=== PATIENT | female | born 1975 | race Caucasian/White ===

== ENCOUNTER → 2019-10-28 09:55 | Outpatient (BNVA) | payer OTHER, SELFPAY | PROVIDERS: Family Provider Family Medicine; PCP Family Medicine; Referring Provider Family Medicine; Visit Provider Family Medicine | DX: E03.9 Hypothyroidism, unspecified (principal); M25.50 Pain in unspecified joint; I49.8 Other specified cardiac arrhythmias; I10 Essential (primary) hypertension; F41.9 Anxiety disorder, unspecified; I87.2 Venous insufficiency (chronic) (peripheral) | CPT/HCPCS: 80053; 84443; 85007; 85027; 85651 ==

== ENCOUNTER → 2019-12-06 16:16 | Outpatient (BNVA) | payer OTHER, SELFPAY | PROVIDERS: Family Provider Family Medicine; PCP Family Medicine; Visit Provider Family Medicine | DX: G62.9 Polyneuropathy, unspecified (principal); E03.9 Hypothyroidism, unspecified; G60.3 Idiopathic progressive neuropathy; I10 Essential (primary) hypertension; I87.2 Venous insufficiency (chronic) (peripheral) | CPT/HCPCS: 82607; 84439; 84443 ==

== ENCOUNTER → 2020-01-08 14:42 | Outpatient (BNVA) | payer OTHER, SELFPAY | PROVIDERS: Family Provider Family Medicine; PCP Family Medicine; Visit Provider Nurse Practitioner Family | DX: N39.0 Urinary tract infection, site not specified (principal) | CPT/HCPCS: 81000 ==

== ENCOUNTER → 2020-03-23 08:40 | Outpatient (BNVA) | payer OTHER, SELFPAY | PROVIDERS: Family Provider Family Medicine; PCP Family Medicine; Visit Provider Family Medicine | DX: E03.9 Hypothyroidism, unspecified (principal); N30.00 Acute cystitis without hematuria; I10 Essential (primary) hypertension; I87.2 Venous insufficiency (chronic) (peripheral); M25.50 Pain in unspecified joint; E66.9 Obesity, unspecified; R35.0 Frequency of micturition; Z68.29 Body mass index [BMI] 29.0-29.9, adult | CPT/HCPCS: 81000; 84439; 84443 ==

== ENCOUNTER 2020-07-14 08:07 | Outpatient (CLI) | payer OTHER, SELFPAY ==
--- NOTE | 2020-07-14 08:13 | MM_ITS ---
WS: [id number] Bilateral screening digital mammogram, 07/14/2020 Clinical Data: SCREENING Comparison: 11/17/2018, 08/06/2017, 07/29/2016. Findings: The breast parenchymal pattern shows fibroglandular tissue No spiculated masses or clustered calcific ations are seen. There are no secondary signs of carcinoma. The augmentation mammoplasty implants are intact. On the medial aspect of the left breast there is a bulge, which has been present before. MM/[id number] Impression: 1. Negative bilateral mammogram unchanged. 2. Intact bilateral augmentation mammoplasty implants. 3. Prominent bulge at the medial aspect of the left breast implant seen on cc view. 4. Recommend annual screening mammograms. BIRADS: 2-Benign FOLLOW UP: 1 Year Follow-up The CAD hat checker was used.
== END 2020-07-14 08:08 | disposition home or self-care (01) ==
LOC: RADSHAW 08:09
PROVIDERS: PCP Family Medicine; Visit Provider Family Medicine
DX: Z12.31 Encounter for screening mammogram for malignant neoplasm of breast (principal)
CPT/HCPCS: 77067

== ENCOUNTER 2022-04-19 16:53 | Emergency (ER) | payer OTHER, SELFPAY ==
--- NOTE | 2022-04-19 16:57 | XRR_ITS ---
PROCEDURE INFORMATION: Exam: XR Chest Exam date and time: 04/19/2022 5:22 PM Age: 46 years old Clinical indication: Angina; Additional info: Cp TECHNIQUE: Imaging protocol: Radiologic exam of the chest. Views: 1 view. COMPARISON: CR Chest 1 [place] [id number] 07/13/2015 2:10 PM FINDINGS: Lungs: Unremarkable. No consolidation. Pleural spaces: Unremarkable. No pleural effusion. No pneumothorax. Heart/Mediastinum: Unremarkable. No cardiomegaly. Bones/joints: Unremarkable. XR/XR chest 1V portable [id number] IMPRESSION: No acute findings.
--- NOTE | 2022-04-19 16:57 | ECG_ITS ---
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 Measurements Intervals [place] Rate: 101 P: 20 AR: 141 QRS: 6 QRSD: 86 T: 92 QT: 325 QTc: 422 Interpretive Statements SINUS TACHYCARDIA NONSPECIFIC ST & T-WAVE ABNORMALITY No previous ECG available for comparison Electronically Signed On 04-19-2022 18:30:14 CDT by Aquilino Rainey M.D. [email or web address].[email or web address]/store/NU/[id number] f
[2022-04-19 17:02] VITALS: BP 147/89; PULSE 100; RESP 18; TEMP 36.8; O2SAT 97; BMI 31.1
[2022-04-19 17:37] LABS: Basophils # 0.1 10^3/uL (0.0-0.1); Eosinophils # 0.2 10^3/uL (0.0-0.8); Eosinophils % 2.2 %; Hematocrit 43.5 % (37.0-47.0); Hemoglobin 14.1 g/dL (11.5-15.3); Lymphocytes # 2.8 10^3/uL (0.8-4.8); Lymphocytes % 33.3 %; Mean Corpuscular HGB Conc 32.4 g/dL (30.0-36.0); Mean Corpuscular Hemoglobin 28.9 pg (28.0-34.0); Mean Corpuscular Volume 89.1 fl (81-99); Mean Platelet Volume 10.1 fL (7.4-10.4); Monocytes # 0.9 10^3/uL (0.2-0.9); Monocytes % 10.4 %; Neutrophils # 4.34 10^3/uL (1.8-7.7); Neutrophils % 52.6 %; Nucleated Red Blood Cells % 0 %; Platelet Count 309 10^3/cmm (130-400); Red Blood Count 4.88 10^6/uL (4.1-5.3); Red Cell Distribution Width 12.8 % (12.1-15.1); White Blood Count 8.3 10^3/uL (4.0-10.0)
--- NOTE | 2022-04-19 17:43 | CTR_ITS ---
PROCEDURE INFORMATION: Exam: CTA Chest With Contrast Exam date and time: 04/19/2022 6:09 PM Age: 46 years old Clinical indication: Chest wall pain; Prior surgery; Surgery date: 6+ months; Surgery type: Breast implants; Patient HX: Radiating pain off/on x2-3 days wo trauma; Additional info: Concern for pe TECHNIQUE: Imaging protocol: Computed tomographic angiography of the chest with contrast. 3D rendering (Not supervised by radiologist): MIP and/or 3D reconstructed images were created by the technologist. Radiation optimization: All CT scans at this facility use at least one of these dose optimization techniques: automated exposure control; mA and/or kV adjustment per patient size (includes targeted exams where dose is matched to clinical indication); or iterative reconstruction. Contrast material: OMNIPAQUE 350; Contrast volume: 95 ml; Contrast route: INTRAVENOUS (IV); COMPARISON: CR (CHEST, ) 04/19/2022 5:22 PM RADIATION DOSE METRICS: Total DLP (mGy-cm): 392.7 FINDINGS: Pulmonary arteries: Normal. No pulmonary emboli. Aorta: Unremarkable. No aortic aneurysm. No aortic dissection. Lungs: Bibasilar atelectasis. Pleural spaces: Unremarkable. No pneumothorax. No pleural effusion. Heart: Unremarkable. No cardiomegaly. No pericardial effusion. Lymph nodes: Unremarkable. No enlarged lymph nodes. Bones/joints: Unremarkable. No acute fracture. Soft tissues: Unremarkable. CT/CT angio chest PE protcl [id number] IMPRESSION: 1. Negative for pulmonary embolus. 2. Bibasilar atelectasis.
--- NOTE | 2022-04-19 17:44 | W.ED.CHESTPA ---
HPI - Chest Pain General: Chief Complaint: Chest Pain Stated Complaint: chest pain Time Seen by Provider: 04/19/22 17:37 History of Present Illness: Patient comes in with left-sided chest pain. She describes it as left-sided, intermittent, pressure started yesterday, became constant today around 1:00 in the afternoon. Becomes sharp and is worse with deep inspiration. Patient was diagnosed with COVID 2 weeks ago. Associated symptoms: Deny abdominal pain, dyspnea, fever(s), nausea, palpitations or vomiting Review of Systems Const: Denies: fever(s) or body aches Eyes: Denies: change in vision or blurry vision ENMT: Denies: throat pain or odynophagia Card: Reports: chest pain; Denies: palpitations Resp: Denies: dyspnea or productive cough GI: Denies: abdominal pain, nausea or vomiting : Denies: flank pain or dysuria Musc: Denies: neck pain or back pain Skin/Breast: Denies: rash or pruritus Neuro: Denies: headache(s) or numbness in extremities Psych: Denies: anxiety or change in appetite Endo: Denies: polyuria or excessive sweating PFSH ED PFSH: Medical History (Updated 04/19/22 @ 19:42 by Michael Mcneil MD) Essential hypertension Obesity (BMI 30.0-34.9) Peripheral neuropathy Social History Smoking and tobacco status: never smoked Alcohol intake: current Alcohol intake frequency: holidays/special occasions only Alcohol type: wine Female Reproductive History: Date of last menstrual period: 03/22/22 Physical Exam Const: COMMON NORMALS: no acute distress, patient oriented x3, healthy appearing and alert HENMT: COMMON NORMALS: normocephalic and atraumatic HEAD & SCALP: normocephalic and atraumatic Eye: COMMON NORMALS: Equal, round and reactive pupils present and EOMs intact bilaterally PUPIL: Yes Equal, round and reactive pupils present Neck/C-Spine: COMMON NORMALS: full ROM and supple Resp: COMMON NORMALS: normal respiratory effort, No retractions and No use of accessory muscles Cardio: COMMON NORMALS: regular rate and regular rhythm RATE: regular rate RHYTHM: regular rhythm GI: COMMON NORMALS: Normal to inspection, nondistended, normoactive bowel sounds present, Soft to palpation and non-tender PALPATION: Yes Soft to palpation Back/Pelvis: COMMON NORMALS: thoracic and lumbar spine normal to inspection and no thoracic nor lumbar tenderness Extremity: COMMON NORMALS: normal to inspection and full ROM Neuro: COMMON NORMALS: patient oriented x3 SENSORIUM/ORIENTATION: Yes alert Psych: COMMON NORMALS: mental status grossly normal and cooperative Skin: COMMON NORMALS: no rashes or lesions noted and no wounds GENERAL SKIN EXAM: no rashes or lesions noted Course Vital Signs: Vital signs: Vital Signs Temperature 98.2 F 04/19/22 17:02 Pulse Rate 100 04/19/22 17:02 Respiratory Rate 18 04/19/22 17:02 Blood Pressure 147/89 04/19/22 17:02 Pulse Oximetry 97 04/19/22 17:02 Oxygen Delivery Me thod 04/19/22 17:02 MDM - Chest Pain Medical Decision Making Patient comes in with left-sided chest pain. She describes it as left-sided, intermittent, pressure started yesterday, became constant today around 1:00 in the afternoon. Becomes sharp and is worse with deep inspiration. Patient was diagnosed with COVID 2 weeks ago. Physical exam is unremarkable. Will check labs, CTA chest, and reassess. On reassessment I talked to the patient about the test results. Will discharge home at this time with precautions return for worsening or changing symptoms. Lab Data : 04/19/22 17:30 04/19/22 17:30 Radiology Impressions Chest X-Ray 04/19/22 16:57 IMPRESSION: No acute findings. Chest CTA 04/19/22 17:43 IMPRESSION: 1. Negative for pulmonary embolus. 2. Bibasilar atelectasis. Laboratory Results WBC 8.3 10^3/uL (4.0-10.0) 04/19/22 17:30 RBC 4.88 10^6/uL (4.1-5.3) 04/19/22 17:30 Hgb 14.1 g/dL (11.5-15.3) 04/19/22 17:30 Hct 43.5 % (37.0-47.0) 04/19/22 17:30 MCV 89.1 fl (81-99) 04/19/22 17:30 MCH 28.9 pg (28.0-34.0) 04/19/22 17:30 MCHC 32.4 g/dL (30.0-36.0) 04/19/22 17: RDW 12.8 % (12.1-15.1) 04/19/22 17: Plt Count 309 10^3/cmm (130-400) 04/19/22 17:30 MPV 10.1 fL (7.4-10.4) 04/19/22 17: Neut % (Auto) 52.6 % 04/19/22 17: Lymph % (Auto) 33.3 % 04/19/22 17:30 [place] % (Auto) 10.4 % 04/19/22: Eos % (Auto) 2.2 % 04/19/22: Baso % (Auto) 1.0 % 04/19/22: Neut # (Auto) 4.34 10^3/uL (1.8-7.7) 04/19/22: Lymph # (Auto) 2.8 10^3/uL (0.8-4.8) 04/19/22 17: [place] # (Auto) 0.9 10^3/uL (0.2-0.9) 04/19/22 17: Eos # (Auto) 0.2 10^3/uL (0.0-0.8) 04/19/22: Baso # (Auto) 0.1 10^3/uL (0.0-0.1) 04/19/22: Nucleated RBC % (auto) 0 % 04/19/22: Nucleated RBCs # 0.0 /100WBC 04/19/22 17:30 Sodium 137 mmol/L (136-145) 04/19/22 17:30 Potassium 3.2 mmol/L (3.5-5.1) L 04/19/22:30 Chloride 98 mmol/L (98-107) 04/19/22 17: Carbon Dioxide 26 mmol/L (22-29) 04/19/22 17:30 Anion Gap 16.2 (5-19) 04/19/22 17:30 BUN 16 mg/dL (6-20) 04/19/22 17:30 Creatinine 0.8 mg/dL (0.5-0.9) 04/19/22 17:30 GFR Calculation 77.6 mL/min (90-130) L 04/19/22 17:30 Glucose 97 mg/dL (65-115) 04/19/22 17:30 Calculated Osmolality 285 mOsm/kg (285-295) 04/19/22 17:30 Calcium 9.2 mg/dL (8.5-10.5) 04/19/22 17:30 Total Bilirubin 0.2 mg/dL (0.15-1.2) 04/19/22 17:30 AST 24 U/L (0-32) 04/19/22 17:30 ALT 17 U/L (0-33) 04/19/22 17:30 Alkaline Phosphatase 44 IU/L (35-105) 04/19/22 17:30 Troponin T Baseline 15 ng/L (0-10) H 04/19/22 17:30 Troponin T 120 Minute 13.62 ng/L (0-10) H 04/19/22 19:04 Delta Troponin T -1.38 ABS# (0-10) L 04/19/22 19:04 Total Protein 7.4 g/dL (6.6-8.7) 04/19/22 17:30 Albumin 4.4 g/dL (3.5-5.2) 04/19/22 17:30 Globulin 3.0 g/dL (1.3-4.6) 04/19/22 17:30 Discharge Plan Discharge Patient Disposition: Home Clinical Impression: Nonspecific chest pain Condition: Stable Prescriptions: No Action nitrofurantoin macrocrystal [Macrodantin] 100 mg capsule 100 mg PO Q12H 10 Days Qty: 20 1RF Rx Instructions: must administer with a meal/food escitalopram oxalate [Lexapro] 10 mg tablet 10 mg PO DAILY Qty: 90 1RF nitrofurantoin macrocrystal [Macrodantin] 100 mg capsule 100 mg PO BID Qty: 14 0RF Rx Instructions: must administer with a meal/food levothyroxine [Synthroid] 50 mcg tablet 50 mcg PO DAILY Qty: 30 3RF phentermine 37.5 mg tablet 37.5 mg PO DAILY Qty: 30 0RF Rx Instructions: must administer 30 minutes before or 1-2 hours after breakfast hydrochlorothiazide 25 mg tablet 25 mg PO DAILY 30 Days Qty: 30 4RF Rx Instructions: e alprazolam [Xanax] 0.5 mg tablet 0.5 mg PO DAILY PRN (Reason: sleep) Qty: 30 3RF Discharge Orders: Discharge ED (Routine); Ordered 04/19/22 Ordered By: Michael Mcneil Referrals: Caron Martinez MD [Primary Care Provider] - Coding Level of Care Code ED Sugar Reprocess Operator Head for Chg Fwd Exam Comprehensive
[2022-04-19 18:01] LABS: Troponin(5th) Baseline 15 ng/L (0-10)
[2022-04-19 18:02] LABS: Alanine Aminotransferase 17 U/L (0-33); Albumin Level 4.4 g/dL (3.5-5.2); Alkaline Phosphatase 44 IU/L (35-105); Anion Gap 16.2 (5-19); Aspartate Amino Transferase 24 U/L (0-32); Blood Urea Nitrogen 16 mg/dL (6-20); Calcium 9.2 mg/dL (8.5-10.5); Carbon Dioxide 26 mmol/L (22-29); Chloride 98 mmol/L (98-107); Glomerular Filtration Rate 77.6 mL/min (90-130); Glucose 97 mg/dL (65-115); Osmolality Calculated 285 mOsm/kg (285-295); Potassium 3.2 mmol/L (3.5-5.1); Sodium 137 mmol/L (136-145); Total Bilirubin 0.2 mg/dL (0.15-1.2); Total Protein 7.4 g/dL (6.6-8.7)
[2022-04-19] MEDS: iohexol 350 mg/mL 100 mL Btl IV (18:12)
--- NOTE | 2022-04-19 18:57 | ECG_ITS ---
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 Measurements Intervals [place] Rate: 63 P: 39 [place]: 138 QRS: 3 QRSD: 90 T: 22 QT: 407 QTc: 418 Interpretive Statements SINUS RHYTHM LOW QRS VOLTAGE IN PRECORDIAL LEADS [QRS DEFLECTION < 1.0 mV IN CHEST LEADS] POSSIBLE ANTERIOR MYOCARDIAL INFARCTION , PROBABLY OLD [30 ms Q WAVE IN V3/V4, OR R < 0.2 mV IN V4] Compared to ECG 04/19/2022 17:06:56 Low QRS voltage now present Myocardial infarct finding now present Sinus tachycardia no longer present T-wave abnormality no longer present Electronically Signed On 04-20-2022 20:34:24 CDT by Silvano Lundberg M.D. [id number]
[2022-04-19 19:32] LABS: Troponin 5 2HR 13.62 ng/L (0-10)
[2022-04-19 19:33] LABS: Troponin 5 2HR Delta -1.38 ABS# (0-10)
[2022-04-19 20:14] VITALS: BP 148/84; PULSE 97; RESP 18; TEMP 36.7; O2SAT 99
== END 2022-04-19 20:16 | disposition home or self-care (01) ==
PROVIDERS: Emergency Medicine; Emergency Provider Emergency Medicine; PCP Family Medicine
DX: R07.89 Other chest pain (principal); I10 Essential (primary) hypertension
CPT/HCPCS: 71045; 71275; 80053; 84484; 85025; 93005; 99285; Q9967

== ENCOUNTER 2023-04-30 07:37 | Day surgery (SDC) | payer OTHER, SELFPAY ==
[2023-04-29 10:42] VITALS: BMI 27.9
[2023-04-30] VITALS (9 sets, daily range): BP systolic 122–145; BP diastolic 79–96; PULSE 76–92; RESP 15–18; TEMP 36.3–36.9; O2SAT 97–100
--- NOTE | 2023-04-30 08:14 | P.HPUD_ITS ---
Surgery/Procedure H&P Update DATE OF PROCEDURE: April 30, 2023 DATE H&P PERFORMED: 04/07/23 H&P UPDATE INFORMATION: I have reviewed H&P completed within last 30 days, I have examined patient prior to procedure, No changes to prior documentation and H&P is in [facility] EMR on date indicated PLANNED PROCEDURE: Operation Date: 04/30/23 09:15 Proposed Procedures p 04882 excision scalp mass R22.0(Not Applicable) - Colton Calderon MD
--- NOTE | 2023-04-30 08:14 | W.PM.OPSUD ---
Surgery/Procedure H&P Update DATE OF PROCEDURE: April 30, 2023 DATE H&P PERFORMED: 04/07/23 H&P UPDATE INFORMATION: I have reviewed H&P completed within last 30 days, I have examined patient prior to procedure, No changes to prior documentation and H&P is in [facility] EMR on date indicated PLANNED PROCEDURE: Operation Date: 04/30/23 09:15 Proposed Procedures p 11342 excision scalp mass R22.0(Not Applicable) - Colton Calderon MD
[2023-04-30] MEDS: sodium chloride 0.9% 1,000 ML 30 ML IV (08:43)
--- NOTE | 2023-04-30 09:54 | ANES.PREANE2 ---
Pre-Anesthetic Assessment Height/Weight: Height 1.55 m Weight 67.132 kg Temp Pulse Resp BP Pulse Ox O2 Del Method 98.4 F 76 18 122/79 98 Room Air 04/30/23 08:04 04/30/23 08:04 04/30/23 08:04 04/30/23 08:04 04/30/23 08:04 04/30/23 08:08 Operation Date: 04/30/23 09:15 Proposed Procedures p 20778 excision scalp mass R22.0(Not Applicable) - Colton Calderon MD Familial anesthetic complications: none Was Beta Teodoro taken within 24 hours: Yes Was Clonidine taken within 24 hours: N/A Last intake: Intake Last Liquid Date 04/29/23 Last Liquid Time 19:00 Last Solid Date 04/29/23 Last Solid Time 19:00 Airway Submandibular: within normal limits Cervical ROM: within normal limits Mallampati: Class I Dentition: full CV/HEM Arrythmia and Hypertension Metabolic Thyroid Disease Neuropsych Anxiety and Neuropathy Anesthetic Plan ASA status: 2 Anesthesia: General Medications/Allergies Home Medications Medication Instructions Recorded Confirmed Last Taken Type levothyroxine 50 mcg tablet 50 mcg PO DAILY #30 tabs 05/05/20 04/29/23 04/29/23 Rx (Synthroid) hydrochlorothiazide 25 mg tablet 25 mg PO DAILY 30 days #30 tabs 06/20/20 04/29/23 04/29/23 Rx alprazolam 0.5 mg tablet (Xanax) 0.5 mg PO DAILY PRN sleep #30 tabs 04/02/21 04/29/23 Unknown Rx buspirone 10 mg tablet 10 mg PO DAILY 04/07/23 04/29/23 04/29/23 History propranolol 10 mg tablet 10 mg PO DAILY 04/07/23 04/29/23 04/28/23 History tirzepatide 12.5 mg/0.5 mL 12.5 mg SUBCUT DIRECTED 04/07/23 04/29/23 04/17/23 History subcutaneous pen injector (Mounjaro) venlafaxine 75 mg capsule,extended 75 mg PO DAILY 04/07/23 04/29/23 04/28/23 History release 24 hr Allergies Allergy/AdvReac Type Severity Reaction Status Date / Time Sulfa (Sulfonamide Allergy Severe ALGY-Anaphy Verified 04/30/23 08:50 Antibiotics) laxis latex Allergy ALGY-Rash Verified 04/30/23 08:49 lisinopril Allergy na Verified 04/07/23 14:28 Current Medications Generic Name Dose Route Start Last Admin Trade Name Freq PRN Reason Stop Dose Admin Sodium Chloride 1,000 mls @ 30 mls/hr 04/30/23 08:00 04/30/23 08:43 Sodium Chloride 0.9% IV 05/01/23 07:59 30 mls/hr .Q24H LAMONTE Administration PFSH Anesthesia Medical History (Updated 04/07/23 @ 15:17 by Colton Calderon MD) Essential hypertension Obesity (BMI 30.0-34.9) Peripheral neuropathy Social History Smoking and tobacco status: never smoked Alcohol intake: current Alcohol intake frequency: holidays/special occasions only Alcohol type: wine Substance/Drug Use: never Data Anesthesia Cardiac Studies: Holter Monitor 11/18/19
[2023-04-30 10:38] LABS: OR HCG Qualitative Urine Negative (Negative)
[2023-04-30] MEDS: lidocaine-epi 1% 20 mL INJ INJECTION (11:00)
[2023-04-30] MEDS: BUPivacaine 0.25% INJ 10 mL 2 ML INJECTION (11:01)
--- NOTE | 2023-04-30 11:01 | PM.OP ---
Operative Report Date of procedure: April 30, 2023 Pre-op diagnosis: Scalp mass Post-op diagnosis: Same Procedure done: Excision of a scalp mass Specimens removed/disposition: scalp mass Surgeon: Colton Calderon MD Estimated blood loss: 5 cc Complications: None Findings: Subcutaneous scalp mass measuring 3 x 2x 1 cm Brief History: 37-year-old female with history of posterior neck mass who presented to my clinic for possible excision. After a lengthy discussion regarding risks and benefits patient was scheduled for excision of posterior neck/scalp mass. Procedure: Patient was brought into the OR. General anesthesia was given. Patient was then transferred to the prone position. There is scalp and posterior neck was prepped and draped in the usual sterile fashion. Timeout was conducted. The mass was noted to be on the posterior scalp just below the occiput. An elliptical 2 cm x 0.5 cm incision was made, the incision was carried down with a 15 blade until the capsule of the mass was identified. Sharp dissection with a scalpel was then used to separate the capsule of the mass from the underlying subcutaneous tissue. The mass was circumferentially dissected and delivered through the incision. A small vascular pedicle was noted on the base of the mass, the same was taken down using electrocautery. The specimen was then passed to the reprographics technician to be sent to pathology. Hemostasis was obtained. The wound was irrigated. Local anesthesia was infiltrated. The wound was closed in layers using 2-0 Vicryl for the subcutaneous tissue and 2-0 nylon vertical mattress sutures for the skin. The patient tolerated well the procedure, was extubated and transferred to the postanesthesia care unit in stable condition. At the end of the procedure all counts were correct.
--- NOTE | 2023-04-30 15:07 | ANE.PACU2 ---
Inpatient post-anesthesia follow up: Airway intact: Yes Vital signs: Temperature 98.0 F Pulse Rate 80 Respiratory Rate 16 Blood Pressure 137/96 Pulse Oximetry 99 Oxygen Delivery Me thod Room Air Oxygen Flow Rate 6 Fraction of Inspir ed Oxygen Hydration adequate: Yes Nausea and vomiting: No Pain level: 1 Mental status: Baseline
== END 2023-04-30 12:20 | disposition home or self-care (01) ==
PROVIDERS: Anesthesiology; Absent Provider Nurse Practitioner Family; PCP Family Medicine; Visit Provider Surgery
PROC: (CPT 11423; principal; 2023-04-30 09:05)
DX: R22.0 Localized swelling, mass and lump, head (principal); I10 Essential (primary) hypertension
CPT/HCPCS: 11423; 12032; 84703; 88304; J1100; J1885; J2250; J2371; J2405; J2704; J3010; J3490; J7030

== ENCOUNTER → 2023-06-02 09:01 | Outpatient (BNVA) | payer OTHER, SELFPAY | PROVIDERS: PCP Nurse Practitioner Family; Referring Provider Nurse Practitioner Family; Visit Provider Psychiatry & Neurology Neurology | DX: R51.9 Headache, unspecified (principal); G43.909 Migraine, unspecified, not intractable, without status migrainosus | CPT/HCPCS: 36415; 81241; 82306; 82607; 82746; 83090; 83735; 83921; 85210; 85300; 85303; 85306; 85613; 85651; 85730; 86140; 86146; 86147; 86160; 86162; 86235; 86255; 86376; 86431 ==

== ENCOUNTER 2023-06-30 15:26 | Outpatient (CLI) | payer OTHER, SELFPAY ==
--- NOTE | 2023-06-30 16:00 | MR_ITS ---
WS: [id number] MRI HEAD WITH CONTRAST TECHNIQUE: Sagittal T1, T2 axial, T2 axial FLAIR, axial susceptibility weighted imaging, axial diffus ion weighted images, and coronal T2 images were obtained. Pre and post-T1 axial and post T1 coronal i mages. ADC and FSPGR images. CLINICAL INFORMATION: R51.9 - Headache, unspecified COMPARISON: MRI 2016 FINDINGS: No evidence of restricted diffusion to suggest acute ischemia. Ventricular system and basal cisterns are patent. Normal posterior fossa. Normal vascular flow voids at the skull base. No extra-axial flui d collections. No evidence of mass or mass effect. Paranasal sinuses and mastoid air cells are well a erated. No suspicious intracranial signal abnormalities. No hemosiderin on susceptibly weighted images. Normal posterior nasopharynx. Normal optic chiasm and pituitary infundibulum. Normal cavernous sinuses and Meckel's cave. Temporal lobes and hippocampal fo rmations are normal in appearance. No abnormal gadolinium enhancement. Normal dural venous sinuses. IMPRESSION: 1. No evidence of restricted diffusion to suggest acute ischemia. 2. No suspicious intracranial signal normalities. 3. No abnormal gadolinium enhancement. 4. No hemosiderin on susceptibility-weighted images. 5. No other suspicious findings.
[2023-06-30] MEDS: gadobenate dimeglumine 20 mL vial IV (17:20)
== END 2023-06-30 15:27 | disposition home or self-care (01) ==
PROVIDERS: PCP Nurse Practitioner Family; Visit Provider Psychiatry & Neurology Neurology
DX: R51.9 Headache, unspecified (principal)
CPT/HCPCS: 70553; A9577

== ENCOUNTER → 2024-04-15 09:35 | Outpatient (BNVA) | payer OTHER, SELFPAY | PROVIDERS: PCP Nurse Practitioner Family; Visit Provider Nurse Practitioner Women's Health | DX: Z01.411 Encounter for gynecological examination (general) (routine) with abnormal findings (principal); N93.9 Abnormal uterine and vaginal bleeding, unspecified; N81.2 Incomplete uterovaginal prolapse | CPT/HCPCS: 84439; 84443; 85025; 87624 ==

== ENCOUNTER → 2024-04-26 10:27 | Outpatient (BNVA) | payer OTHER, SELFPAY | PROVIDERS: PCP Nurse Practitioner Family; Visit Provider Nurse Practitioner Women's Health | DX: D25.9 Leiomyoma of uterus, unspecified (principal); N85.2 Hypertrophy of uterus; N92.6 Irregular menstruation, unspecified | CPT/HCPCS: 76830 ==

== ENCOUNTER 2024-07-28 08:11 | Outpatient (CLI) | payer OTHER, SELFPAY ==
[2024-07-28 09:20] LABS: Free T4 Free Thyroxine 1.07 ng/dL (0.82-1.77); Thyroid Stimulating Hormone 6.48 uIU/mL (0.27-4.20)
[2024-07-29 07:41] LABS: T3 Total 109 ng/dL (76-181)
== END 2024-07-28 08:12 | disposition home or self-care (01) ==
LOC: LAB 08:13
PROVIDERS: PCP Nurse Practitioner Family; Visit Provider Internal Medicine
DX: E03.9 Hypothyroidism, unspecified (principal); E05.90 Thyrotoxicosis, unspecified without thyrotoxic crisis or storm
CPT/HCPCS: 36415; 83516; 84439; 84443; 84480; 86376; 86800

== ENCOUNTER → 2024-08-27 12:55 | Outpatient (BNVA) | payer OTHER, SELFPAY | PROVIDERS: PCP Nurse Practitioner Family; Visit Provider Emergency Medicine | DX: R39.9 Unspecified symptoms and signs involving the genitourinary system (principal) | CPT/HCPCS: 81000 ==

== ENCOUNTER 2024-09-28 17:44 | Observation (INO) | payer OTHER, SELFPAY ==
[2024-09-21 09:21] LABS: Basophils % 0.7 %; Eosinophils # 0.1 10^3/uL (0.0-0.8); Hematocrit 40.1 % (36-47); Lymphocytes # 2.2 10^3/uL (0.8-4.8); Lymphocytes % 36.6 %; Mean Corpuscular HGB Conc 33.9 g/dL (30-55); Mean Corpuscular Hemoglobin 30.3 pg (27-33); Mean Corpuscular Volume 89.3 fl (85-98); Mean Platelet Volume 9.6 fL (7.4-10.4); Monocytes # 0.7 10^3/uL (0.2-0.9); Monocytes % 11.4 %; Neutrophils # 2.97 10^3/uL (1.8-7.7); Nucleated Red Blood Cells % 0 %; Platelet Count 288 10^3/cmm (157-399); Red Blood Count 4.49 10^6/uL (3.85-5.65); Red Cell Distribution Width 11.9 % (12.1-15.1); White Blood Count 6.06 10^3/uL (3.29-11.43)
[2024-09-21 09:26] LABS: Bilirubin Urine Negative (Negative); Blood Urine Negative (Negative); Glucose Urine UA Negative (Normal); Ketones Urine Negative (Negative); Leukocyte Esterase Urine Trace (Negative); Nitrate Urine Negative (Negative); Protein Urine Negative (Negative); Specific Gravity, Urine 1.021 (1.005-1.030); Urine Appearance Clear (CLEAR); Urine Color Yellow (Yellow); pH Urine 5.5 (5-7)
[2024-09-21 09:31] LABS: Add Urine Microscopic? YES; Bacteria Urine Trace /hpf; Hyaline Casts Urine 1.65 /lpf; RBC Urine 0-2 /hpf (0-2); WBC Urine 0-5 /hpf (0-5)
[2024-09-21 09:36] LABS: Alanine Aminotransferase 14 U/L (0-33); Albumin Level 4.1 g/dL (3.5-5.2); Alkaline Phosphatase 44 U/L (35-105); Anion Gap 14.3 (5-19); Aspartate Amino Transferase 17 U/L (0-32); Blood Urea Nitrogen 11 mg/dL (6-20); Calcium 9.4 mg/dL (8.5-10.5); Carbon Dioxide 26 mmol/L (22-29); Chloride 98 mmol/L (98-107); Globulin 2.8 g/dL (1.3-4.6); Glomerular Filtration Rate 76.6 mL/min (90-130); Glucose 85 mg/dL (65-115); Osmolality Calculated 277 mOsm/kg (285-295); Potassium 4.3 mmol/L (3.5-5.1); Sodium 134 mmol/L (136-145); Total Bilirubin 0.4 mg/dL (0.15-1.2); Total Protein 6.9 g/dL (6.6-8.7)
--- NOTE | 2024-09-21 10:08 | ANES.PREANE2 ---
Pre-Anesthetic Assessment Height/Weight: Height 5 ft 1 in Preop Diagnosis: abnormal uterine bleeding, uterine fibroid, uterine prolapse Operation Date: 09/28/24 13:00 Proposed Procedures p Laparoscopic Assist Vaginal Hysterectomy 69738, N93.9, D25.1, R10.2(Not Applicable) - Dave Diaz MD Was Beta Teodoro taken within 24 hours: Yes Was Clonidine taken within 24 hours: N/A Social No alcohol and No tobacco Exam alert, oriented x 3, clear to auscultation bilaterally and regular rate & rhythm Airway Submandibular: within normal limits Cervical ROM: within normal limits Mallampati: Class II Dentition: full Anesthetic Plan ASA status: 2 Anesthesia: General Other: No prior issues with anesthesia in the past Plan for n.p.o. at midnight prior to surgery History of hypertension on hydrochlorothiazide and propranolol Hypothyroidism on Synthroid Denies any pulmonary issues EKG sinus rhythm Labs reviewed 09/21 and acceptable for for procedure METs greater than 4 Plan for general anesthetic Medications/Allergies Home Medications Medication Instructions Recorded Confirmed Last Taken Type hydrochlorothiazide 25 mg tablet 25 mg PO DAILY 30 days #30 tabs 06/20/20 09/21/24 09/21/24 Rx buspirone 10 mg tablet 10 mg PO TID PRN Anxiety 04/07/23 09/21/24 09/20/24 History propranolol 10 mg tablet 10 mg PO DAILY 04/07/23 09/21/24 09/21/24 History venlafaxine 75 mg capsule,extended 75 mg PO DAILY 04/07/23 09/21/24 09/20/24 History release 24 hr fluticasone propionate 50 2 spray intranasal BID PRN allergy 08/17/23 09/21/24 Unknown Rx mcg/actuation nasal symptoms #16 grams spray,suspension (Flonase Allergy Relief) topiramate 50 mg tablet (Topamax) 50 mg PO TID 04/15/24 09/21/24 09/21/24 History levothyroxine 25 mcg capsule 25 mcg PO EVERY OTHER DAY 08/27/24 09/21/24 09/20/24 History tirzepatide 15 mg/0.5 mL 15 mg (0.5 mL) SUBCUT Q7D #2 mL 09/14/24 09/21/24 09/13/24 Rx subcutaneous pen injector (Mounjaro) Allergies Allergy/AdvReac Type Severity Reaction Status Date / Time Sulfa (Sulfonamide Allergy Severe ALGY-Anaphy Verified 09/20/24 12:50 Antibiotics) laxis latex Allergy ALGY-Rash Verified 09/20/24 12:50 lisinopril Allergy na Verified 09/21/24 08:46 [facility] Anesthesia Medical History Anxiety No pertinent past medical history neghx: dm,dvt/pe PCP: Tarmera Costa Chronic migraine Obesity (BMI 30.0-34.9) Peripheral neuropathy Essential hypertension Surgical History History of rectopexy (~2009) History of bladder surgery (~2011) sling with Dr. 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 History of breast augmentation History of bilateral carpal tunnel release (~2009) Family History Mother Breast cancer, Onset Age: 48 lumpectomy; did not require chemo/radiation Heart disease Thyroid disease Father Diabetes Heart disease Hyperlipidemia Hypertension Brother Heart disease Hypertension Denies family history of Colon cancer Ovarian cancer Prostate cancer Uterine cancer Stroke Social History Smoking and tobacco/nicotine status: never used tobacco/nicotine Data Anesthesia 09/21/24 09:07 09/21/24 09:07 Short CBC 09/21/24 Range/Units 09:07 WBC 6.06 (3.29-11.43) 10^3/uL Hgb 13.60 (11.27-16.99) g/dL Hct 40.1 (36-47) % MCV 89.3 (85-98) fl Plt Count 288 (157-399) 10^3/cmm Neut % (Auto) 49.0 % Neut # (Auto) 2.97 (1.8-7.7) 10^3/uL BMP 09/21/24 09:07 Sodium 134 L Potassium 4.3 Chloride 98 Carbon Dioxide 26 BUN 11 Creatinine 0.8 Glucose 85 Calcium 9.4 Liver Function 09/21/24 Range/Units 09:07 Total Bilirubin 0.4 (0.15-1.2) mg/dL AST 17 (0-32) U/L ALT 14 (0-33) U/L Alkaline Phosphatase 44 (35-105) U/L Albumin 4.1 (3.5-5.2) g/dL Urine 09/21/24 Range/Units 09:10 Urine Color Yellow (Yellow) Urine Appearance Clear (CLEAR) Urine pH 5.5 (5-7) Ur Specific [place] 1.021 (1.005-1.030) Urine Protein Negative (Negative) Urine Glucose (UA) Negative (Normal) Urine Ketones Negative (Negative) Urine Nitrate Negative (Negative) Urine Bilirubin Negative (Negative) Ur Leukocyte Esterase Trace A (Negative) Urine RBC 0-2 (0-2) /hpf Urine WBC 0-5 (0-5) /hpf Cardiac Studies: Holter Monitor 11/18/19
[2024-09-28] VITALS (12 sets, daily range): BP systolic 116–150; BP diastolic 68–99; PULSE 68–99; RESP 10–19; TEMP 36.3–37.1; O2SAT 95–100; BMI 27.1
[2024-09-28] MEDS: sodium chloride 0.9% 1,000 ML 30 ML IV (11:18)
[2024-09-28 11:21] LABS: OR HCG Qualitative Urine Negative (Negative)
[2024-09-28 11:32] LABS: Glucose Point of Care 78 mg/dL (70-110)
--- NOTE | 2024-09-28 13:17 | W.PM.OPSUD ---
Surgery/Procedure H&P Update DATE OF PROCEDURE: September 28, 2024 DATE H&P PERFORMED: 09/28/24 H&P UPDATE INFORMATION: I have reviewed H&P completed within last 30 days, I have examined patient prior to procedure and No changes to prior documentation PREOP DIAGNOSIS: abnormal uterine bleeding, uterine fibroid, uterine prolapse PLANNED PROCEDURE: Operation Date: 09/28/24 12:40 Proposed Procedures p Laparoscopic Assist Vaginal Hysterectomy 34202, N93.9, D25.1, R10.2(Not Applicable) - Dave Diaz MD
[2024-09-28] MEDS: ceFAZolin 2,000 mg SDV 2000 MG IVP (13:33)
[2024-09-28] MEDS: metroNIDAZOLE IV 500 MG/100 ML PREMIX 100 MG IV (13:34)
[2024-09-28] MEDS: lidocaine-epi 1% 20 mL INJ INJECTION (14:47)
[2024-09-28] MEDS: BUPivacaine 0.5% INJ 30 mL INJECTION (14:58)
--- NOTE | 2024-09-28 15:30 | W.PM.BPON ---
Date of Procedure: 09/28/24 Surgeon: Dave Diaz MD Senior Test Engineer(s): Procedure(s) performed: Laparoscopic assisted vaginal hysterectomy, bilateral salpingectomy Findings of the procedure(s): Enlarged uterus Estimated blood loss: 150 mL Specimen(s) removed: Uterus left and right fallopian tube Post-operative diagnosis: Status post laparoscopic-assisted vaginal hysterectomy
--- NOTE | 2024-09-28 15:32 | P.OP_ITS ---
Operative Report Date of procedure: September 28, 2024 Pre-op diagnosis: Abnormal uterine bleeding Uterine fibroid uterine prolapse stage II Post-op diagnosis: same Procedure done: Laparoscopic-assisted vaginal hysterectomy Bilateral salpingectomy Specimens removed/disposition: Uterus Left and right fallopian tube Surgeon: Dave Diaz MD Estimated blood loss (mL): 150 IV fluids (mL): 1,000 Urine output (mL): 200 Complications: None Procedure: After informed consent, the patient was taken to the operating room where general anesthesia was administered. Pre-Procedure Time-Out verifying the correct patient identity, correct procedure verified with consent, correct site and side, correct patient position, availability of correct implants and any special equipment or requirements was performed and acknowledge by the OR team. She was placed in the dorsal lithotomy position and prepped and draped in sterile fashion. The patient was examined under anesthesia and found to have a normal uterus with normal adnexa. A Cohen catheter was placed in the bladder. A weighted speculum was placed in the vagina, and the anterior lip of cervix was grasped with the single toothed tenaculum. A uterine manipulator was advanced into the endocervical. Tenaculum was removed after uterine manipulator was secured. The speculum was removed from the vagina. The attention was brought to abdomen after changing gloves. The base of the umbilicus was grasped with an Allis clamp and with 2 towel clamp bilaterally tenting up the umbilicus an intra umbilical incision was made with a scalpel. While tenting up on the abdomen, a Verres needle with sleeve was admitted into the intra-abdominal cavity. A saline drop test was performed and noted to be within normal limits. Pneumoperitoneum was attained with 4 liters of carbon dioxide. The Verres needle was removed. Then a 5 mm Optiview trocar and cannula were inserted under direct visualization without complications. Trocars were removed and the laparoscope was inserted and connected to the video camera light source. A 5 mm trocar and cannula were placed in the right lower quadrant under direct visualization after infiltration of 2% lidocaine with epinephrine. A 5 mm trocar and cannula were placed in the left lower quadrant under direct visualization after infiltration of 2% lidocaine with epinephrine. The pelvic contents were visualized and noted a small uterus, deep cul-de-sac, normal bilateral fallopian tubes and ovaries, normal appendix, and both ureters were identified crossing the pelvic brim and pelvic sidewall. The left round ligament was coagulated and transected using LigaSure device. The left broad ligament was opened down to the level of the uterine artery and vein. The left infundibulopelvic ligament was coagulated using LigaSure and then transected. The right round ligament was coagulated and transected using LigaSure, and the right broad ligament was opened down to the level of the right uterine artery and vein. The right infundibulopelvic ligament was coagulated and transected using LigaSure. Peritoneum of the lower uterine segment was entered using LIGASURE, and the bladder was dissected off the lower uterine segment using blunt dissection. Careful inspection revealed complete hemostasis. A weighted speculum was placed in the posterior vaginal wall and the right-angle retractor used to visualize the cervix. The cervix was grasped across the anterior lip with a single-toothed tenaculum and circumferentially infiltrated with 2% lidocaine with epinephrine at this time. The cervix was circumferentially excised with the scalpel. The vaginal mucosa was dissected superiorly with sharp dissection. The anterior peritoneal reflection was identified, and it was entered with Metzenbaum scissors. A posterior colpotomy was made through the cul-de-sac space. The posterior peritoneum was identified in similar fashion and Metzenbaum scissors were used to enter the cul-de-sac. At this time, a weighted speculum was placed, advanced posteriorly into the cul-de-sac. At this time, the left and right uterosacral ligaments were isolated and ligated with 0 Vicryl. The LigaSure device was then used in a serial fashion up through the cardinal ligaments bilaterally. Finally, the uterine arteries were cross-clamped, cut, and ligated with the LigaSure device. LigaSure device was then used up through the broad ligaments superiorly and finally the uterus was rotated posteriorly. The left and right tubes were then cross-clamped and ligated with LigaSure device. The uterus was excised and submitted for pathologic evaluation. At this time, Suzy clamps were used to grasp the left and right fallopian tube, and they were removed per the patient's request. The LigaSure device clamps were placed across the infundibulopelvic ligaments bilaterally and was used to clamp seal and cut as sure and hemostasis. The pedicles were doubly ligated bilaterally with 0 Vicryl and hemostasis noted to be achieved. No other abnormalities were noted in the pelvic cavity. At this time, instruments were removed from the patient's abdominopelvic cavity. Vaginal cuff closure and peritoneum were incorporated into one layer with 0 Vicryl suture in a continuous running interlocking fashion. Hemostasis was noted to be achieved. Cohen catheter was then placed yielding clear blue urine. The patient tolerated the procedure well and was taken to the recovery room in a stable condition. Sponge and needle counts were correct x3.
--- NOTE | 2024-09-28 16:34 | PC.NURSE ---
1625 - accepted into room 10 per RN - pt in no distress upon this nurse exiting care- BP 145/84 - pulse 79 - 02 99% Temp 97.9
[2024-09-28] MEDS: docusate sodium 100 mg Capsule PO (19:48)
[2024-09-29 04:30] VITALS: BP 111/87; PULSE 67; TEMP 36.6; TEMP 36.7; O2SAT 99
[2024-09-29 05:35] LABS: Hematocrit 37.2 % (36-47); Mean Corpuscular HGB Conc 32.8 g/dL (30-55); Mean Corpuscular Hemoglobin 30.7 pg (27-33); Mean Corpuscular Volume 93.7 fl (85-98); Mean Platelet Volume 9.5 fL (7.4-10.4); Platelet Count 287 10^3/cmm (157-399); Red Blood Count 3.97 10^6/uL (3.85-5.65); Red Cell Distribution Width 12.1 % (12.1-15.1); White Blood Count 12.01 10^3/uL (3.29-11.43)
--- NOTE | 2024-09-29 10:08 | PM.OBGYDC ---
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 Wolfe 49-year-old female with a history of abnormal uterine bleeding, uterine fibroid and incomplete uterine prolapse. She was admitted for planned total vaginal hysterectomy. A total vaginal hysterectomy with bilateral salpingectomy was performed without complication. Postop overnight observation was uneventful. Tolerating diet well. Ambulating without difficulty. She is afebrile and hemodynamically stable postoperative day 1. She was counseled regarding pelvic rest for 6 weeks (no sex, no tampons, no vaginal douches). Return to the emergency room if any fever, increased bleeding or pain. Physical Exam Narrative: GA: Alert and oriented ?3. HEENT: WNL. Heart: Regular rate and rhythm. Lungs: Clear to auscultation bilaterally. Abdomen: Bowel sounds present, nontender.. 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 Extremities: No edema, no cyanosis, no calves pain. Urinary Catheter Management: Cohen Latex Free: Cath Placed During This Visit: yes Urinary Catheter Date of Insertion: 09/28/24 Urinary Catheter Time of Insertion: 14:37 History History History 2 Term 2 0 Miscarriages/Ectopic 0 Living Children 2 Discharge Data Studies Completed and Pending Pending at discharge Category Date Time Status Pathology: Surgical [PTH] Routine Pth 09/28/24 15:19 Received Laboratory Results WBC 12.01 10^3/uL (3.29-11.43) H 09/29/24 05:00 RBC 3.97 10^6/uL (3.85-5.65) 09/29/24 05:00 Hgb 12.20 g/dL (11.27-16.99) 09/29/24 05:00 Hct 37.2 % (36-47) 09/29/24 05:00 MCV 93.7 fl (85-98) 09/29/24 05:00 MCH 30.7 pg (27-33) 09/29/24 05:00 MCHC 32.8 g/dL (30-55) 09/29/24 05:00 RDW 12.1 % (12.1-15.1) 09/29/24 05:00 Plt Count 287 10^3/cmm (157-399) 09/29/24 05:00 MPV 9.5 fL (7.4-10.4) 09/29/24 05:00 Neut % (Auto) 49.0 % 09/21/24 09:07 Lymph % (Auto) 36.6 % 09/21/24 09:07 [place] % (Auto) 11.4 % 09/21/24 09:07 Eos % (Auto) 2.0 % 09/21/24 09:07 Baso % (Auto) 0.7 % 09/21/24 09:07 Neut # (Auto) 2.97 10^3/uL (1.8-7.7) 09/21/24 09:07 Lymph # (Auto) 2.2 10^3/uL (0.8-4.8) 09/21/24 09:07 [place] # (Auto) 0.7 10^3/uL (0.2-0.9) 09/21/24 09:07 Eos # (Auto) 0.1 10^3/uL (0.0-0.8) 09/21/24 09:07 Baso # (Auto) 0.0 10^3/uL (0.0-0.1) 09/21/24 09:07 Nucleated RBC % (auto) 0 % 09/21/24 09:07 Nucleated RBCs # 0.0 /100WBC 09/21/24 09:07 Sodium 134 mmol/L (136-145) L 09/21/24 09:07 Potassium 4.3 mmol/L (3.5-5.1) 09/21/24 09:07 Chloride 98 mmol/L (98-107) 09/21/24 09:07 Carbon Dioxide 26 mmol/L (22-29) 09/21/24 09:07 Anion Gap 14.3 (5-19) 09/21/24 09:07 BUN 11 mg/dL (6-20) 09/21/24 09:07 Creatinine 0.8 mg/dL (0.5-0.9) 09/21/24 09:07 GFR Calculation 76.6 mL/min (90-130) L 09/21/24 09:07 Glucose 85 mg/dL (65-115) 09/21/24 09:07 POC Glucose 78 mg/dL (70-110) 09/28/24 11:27 Calculated Osmolality 277 mOsm/kg (285-295) L 09/21/24 09:07 Calcium 9.4 mg/dL (8.5-10.5) 09/21/24 09:07 Total Bilirubin 0.4 mg/dL (0.15-1.2) 09/21/24 09:07 AST 17 U/L (0-32) 09/21/24 09:07 ALT 14 U/L (0-33) 09/21/24 09:07 Alkaline Phosphatase 44 U/L (35-105) 09/21/24 09:07 Total Protein 6.9 g/dL (6.6-8.7) 09/21/24 09:07 Albumin 4.1 g/dL (3.5-5.2) 09/21/24 09:07 Globulin 2.8 g/dL (1.3-4.6) 09/21/24 09:07 Urine Color Yellow (Yellow) 09/21/24 09:10 Urine Appearance Clear (CLEAR) 09/21/24 09:10 Urine pH 5.5 (5-7) 09/21/24 09:10 Ur Specific [place] 1.021 (1.005-1.030) 09/21/24 09:10 Urine Protein Negative (Negative) 09/21/24 09:10 Urine Glucose (UA) Negative (Normal) 09/21/24 09:10 Urine Ketones Negative (Negative) 09/21/24 09:10 Urine Blood Negative (Negative) 09/21/24 09:10 Urine Nitrate Negative (Negative) 09/21/24 09:10 Urine Bilirubin Negative (Negative) 09/21/24 09:10 Urine Urobilinogen 1.0 mg/dL (Negative) 09/21/24 09:10 Ur Leukocyte Esterase Trace (Negative) A 09/21/24 09:10 Urine RBC 0-2 /hpf (0-2) 09/21/24 09:10 Urine WBC 0-5 /hpf (0-5) 09/21/24 09:10 Ur Squamous Epith Cells 6-10 /hpf (0-5) 09/21/24 09:10 Amorphous Sediment Not Reportable 09/21/24 09:10 Urine Bacteria Trace /hpf (NONE) 09/21/24 09:10 Hyaline Casts 1.65 /lpf 09/21/24 09:10 Urine HCG, Qual Negative (Negative) 09/28/24 11:19 Blood Type A Negative 09/28/24 11:24 Rho(D) Type Rh negative 09/28/24 11:24 Antibody Screen Negative 09/28/24 11:24 Vitals Last Vital Signs Temp 98.0 F 09/29/24 04:30 Pulse 67 09/29/24 04:30 Resp 16 09/28/24 17:30 BP 111/87 09/29/24 04:30 Pulse Ox 99 09/29/24 04:30 O2 Del Method Room Air 09/28/24 19:30 O2 Flow Rate 8 09/28/24 15:55 Results Labs OB ([facility]): Blood Type A Negative 09/28/24 Antibody Screen Negative 09/28/24 Hct 37.2 % (36-47) 09/29/24 Hgb 12.20 g/dL (11.27-16.99) 09/29/24 Rho(D) Type Rh negative 09/28/24 Plt Count 287 10^3/cmm (157-399) 09/29/24 TSH 6.48 uIU/mL (0.27-4.20) H 07/28/24 Free T4 1.07 ng/dL (0.82-1.77) 07/28/24 Pap Smear Interpret See note 04/15/24 Discharge Plan Discharge Patient Disposition: Home Condition: Stable Prescriptions: New hydrocodone-acetaminophen 5-325 mg tablet 1 tab PO Q4H PRN (Reason: pain) Qty: 10 0RF acetaminophen 325 mg capsule 325 mg PO Q4H PRN (Reason: fever or pain) Qty: 60 0RF ibuprofen 800 mg tablet 800 mg PO TID PRN (Reason: pain) Qty: 60 0RF Continued fluticasone propionate [Flonase Allergy Relief] 50 mcg/actuation spray,suspension 2 spray intranasal BID PRN (Reason: allergy symptoms) Qty: 16 0RF Rx Instructions: administer into each nostril topiramate [Topamax] 50 mg tablet 50 mg PO TID buspirone 10 mg tablet 10 mg PO TID PRN (Reason: Anxiety) propranolol 10 mg tablet 10 mg PO DAILY venlafaxine 75 mg capsule,extended release 24hr 75 mg PO DAILY levothyroxine 25 mcg capsule 25 mcg PO EVERY OTHER DAY hydrochlorothiazide 25 mg tablet 25 mg PO DAILY 30 Days Qty: 30 4RF Rx Instructions: e Mounjaro 15 mg/0.5 mL pen injector 15 mg SUBCUT Q7D Qty: 2 1RF Discharge Orders: Discharge Order (Routine); Ordered 09/29/24 Ordered By: Dave Diaz Referrals: Dave Diaz MD [Physician] - 11/08/24 1:30 pm Lynn Thompson APN, WHNP [Nurse Practitioner] - 10/14/24 11:30 am Discharge Diet: Usual diet Discharge Activity: Limit activity as instructed Patient Instructions: Acute Wound Care (DC), Opioid Safety (DC), Vaginal Hysterectomy (DC), OB Discharge Report, OB Food/Drug Interaction Guide, Opioid Safety, Post Anesthesia Care Activity Restrictions/Additional Instructions: 1. Please call [facility] on next working day to make your post-operative appointment in 2 weeks. 2. Please stay home until you come back to the clinic on first post-hospatilization check up. 3. Please follow instructions on your medications CAREFULLY. 4. If you have abdominal incision, do not cover it unless dressing is necessary because of drainage. OK to shower, but avoid bath. Leave steri-strips until they fall off. If they are still on one week after surgery, you may remove them. 5. If you had vaginal surgery or vaginal repair, Dr. Diaz may instruct you to take SITZ bath. 6. Yellow, blood tinged odorous vaginal discharge is usually normal after hysterectomy or vaginal surgeries. 7. No SEXUAL INTERCOURSE, tampons, or douches until you are completely released from the post-operative care. 8. Avoid constipation by eating right and maybe using some Metamucil or Milk of Magnesia. 9. All prescription refills are given during the working hours. Please do no wait till it runs out. Call the clinic at [phone] before your medication runs out. The clinic will get in touch with your doctor to prescribe medications if necessary. 10. Please remain within 40 mile radius from our hospital because emergencies do happen now and then during the post-operative period. 11. If you have stairs at home, take one step at a time slowly and minimize the number of trips. It helps to stay in one floor for the next few days. No lifting except what you can lift by one hand until you are released from the post-operative care. 12. Driving is discouraged until you are well healed. It may be 3-4 weeks before you feel strong enough to drive. You should be able to turn and look through the rear window without pain and you should be able to push the brake pedal very hard without pain before you drive. No fast rules, but SAFETY should be your primary concern. DO NOT drive if you are on sedating medications such as narcotics. 13. Call the clinic (during working hours) to make urgent appointment or go to the Emergency room, if any of the following occurs: i. Vaginal bleeding becomes heavy, more than a period. ii. Incision becomes red and sore, or drains pus. iii. Your TEMPERATURE is over 100.4F or you have chill. iv. IV site becomes red and swollen (a little ``knot?? is usually OK) v. Persistent nausea and vomiting vi. Persistent constipation or diarrhea vii. Rash or allergic reaction to medications. 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
[2024-09-29 11:00] VITALS: BP 117/78; PULSE 61; TEMP 37.1
[2024-09-29] MEDS: hydroCHLOROthiazide 25 mg Tablet PO (11:13)
[2024-09-29] MEDS: propranolol 20 mg Tablet 10 MG PO (11:13)
[2024-09-29] MEDS: topiramate 25 mg Tablet 50 MG PO (11:14)
[2024-09-29] MEDS: docusate sodium 100 mg Capsule PO (11:14)
[2024-09-29 11:26] VITALS: BP 117/78; PULSE 61; O2SAT 100
== END 2024-09-29 11:26 | disposition home or self-care (01) ==
LOC: OBGYN 17:46
PROVIDERS: Student in an Organized Health Care Education/Training Program; Admitting Provider Obstetrics & Gynecology; PCP Nurse Practitioner Family; Visit Provider Obstetrics & Gynecology
PROC: 0UT9FZZ Resection of Uterus, Via Natural or Artificial Opening With Percutaneous Endoscopic Assistance (ICD-10-PCS; principal; 2024-09-28 12:30)
PROC: (CPT 58700; 2024-09-28 12:30)
DX: D25.9 Leiomyoma of uterus, unspecified (principal); N81.2 Incomplete uterovaginal prolapse; N72 Inflammatory disease of cervix uteri; N93.9 Abnormal uterine and vaginal bleeding, unspecified; N87.9 Dysplasia of cervix uteri, unspecified; N80.03 Adenomyosis of the uterus; Z79.899 Other long term (current) drug therapy; Z79.890 Hormone replacement therapy; Z88.8 Allergy status to other drugs, medicaments and biological substances; Z88.2 Allergy status to sulfonamides
CPT/HCPCS: 58552; 36415; 36416; 80053; 81001; 81025; 82962; 85025; 85027; 86850; 86900; 88307; 96374; G0378; J0690; J1100; J1200; J1885; J2250; J2405; J2704; J3010; J3490; J7030

== ENCOUNTER 2024-11-09 11:33 | Outpatient (CLI) | payer OTHER, SELFPAY ==
--- NOTE | 2024-11-09 11:48 | MM_ITS ---
WS: [id number] BILATERAL 3D TOMOSYNTHESIS DIGITAL SCREENING MAMMOGRAPHY WITH CAD CLINICAL INFORMATION: SCREENING HISTORY: Screening mammogram. No current complaints. COMPARISON: 2020 TECHNIQUE: Bilateral CC and MLO views. FINDINGS: Bilateral breast implants. Lobulated bilateral breast implants similar in appearance to 2020. The breasts are composed of heterogeneous fibroglandular density tissue, which can limit the detection of small underlying mass lesions. No suspicious mass, asymmetry, calcifications, or architectural distortion. No evidence of malignancy. MM/MM [facility] tomosynthesis [id number] IMPRESSION: DENSITY: The breasts are heterogeneously dense, which may obscure small masses. BI-RADS: 2 - Benign FOLLOW UP: 1 Year Follow-up Recommend return to annual screening mammography.
== END 2024-11-09 11:34 | disposition home or self-care (01) ==
LOC: RAD 11:37
PROVIDERS: PCP Nurse Practitioner Family; Visit Provider Nurse Practitioner Family
DX: Z12.31 Encounter for screening mammogram for malignant neoplasm of breast (principal); Z98.82 Breast implant status; R92.333 Mammographic heterogeneous density, bilateral breasts
CPT/HCPCS: 77063; 77067

== ENCOUNTER 2024-11-09 11:39 | Outpatient (CLI) | payer OTHER, SELFPAY ==
[2024-11-09 12:13] LABS: Estmated Average Glucose 105; Hemoglobin A1C 5.3 % (4.0-6.0)
[2024-11-09 12:20] LABS: Creatinine Urine, Random 265 mg/dL (28-217); Microalbum Creatinine Ratio Ur 8 mg/dL (0-20); Microalbumin Random Urine 2 ug/dL (0-20)
[2024-11-09 12:30] LABS: Alanine Aminotransferase 11 U/L (0-33); Albumin Level 4.2 g/dL (3.5-5.2); Alkaline Phosphatase 61 U/L (35-105); Anion Gap 17.3 (5-19); Aspartate Amino Transferase 15 U/L (0-32); Blood Urea Nitrogen 13 mg/dL (6-20); Carbon Dioxide 20 mmol/L (22-29); Chloride 103 mmol/L (98-107); Cholesterol 177 mg/dL (0-200); Free T4 Free Thyroxine 1.24 ng/dL (0.82-1.77); Globulin 3.2 g/dL (1.3-4.6); Glomerular Filtration Rate 76.6 mL/min (90-130); Glucose 105 mg/dL (65-115); HDL Cholesterol 52 mg/dL (60-100); LDL Cholesterol Calculated 107 mg/dL (50-129); LDL HDL Ratio 2.06 RATIO (0.00-3.22); Osmolality Calculated 282 mOsm/kg (285-295); Potassium 4.3 mmol/L (3.5-5.1); Sodium 136 mmol/L (136-145); Thyroid Stimulating Hormone 0.96 uIU/mL (0.27-4.20); Total Bilirubin 0.3 mg/dL (0.15-1.2); Total Protein 7.4 g/dL (6.6-8.7); Triglycerides 89 mg/dL (0-150)
== END 2024-11-09 11:40 | disposition home or self-care (01) ==
LOC: LAB 11:41
PROVIDERS: PCP Nurse Practitioner Family; Visit Provider Internal Medicine
DX: E05.90 Thyrotoxicosis, unspecified without thyrotoxic crisis or storm (principal); I10 Essential (primary) hypertension; E11.9 Type 2 diabetes mellitus without complications
CPT/HCPCS: 36415; 80053; 80061; 82044; 83036; 84439; 84443

== ENCOUNTER 2025-02-17 12:11 | Outpatient (CLI) | payer OTHER, SELFPAY ==
[2025-02-17 13:24] LABS: Alanine Aminotransferase 13 U/L (0-33); Albumin Level 4.3 g/dL (3.5-5.2); Alkaline Phosphatase 44 U/L (35-105); Anion Gap 17.6 (5-19); Aspartate Amino Transferase 17 U/L (0-32); Blood Urea Nitrogen 18 mg/dL (6-20); Calcium 9.1 mg/dL (8.5-10.5); Carbon Dioxide 24 mmol/L (22-29); Chloride 102 mmol/L (98-107); Chol HDL Ratio 3.67 mg/dL (0.0-4.40); Cholesterol 209 mg/dL (0-200); Glomerular Filtration Rate 76.6 mL/min (90-130); Glucose 93 mg/dL (65-115); HDL Cholesterol 57 mg/dL (60-100); LDL Cholesterol Calculated 117 mg/dL (50-129); LDL HDL Ratio 2.05 RATIO (0.00-3.22); Osmolality Calculated 292 mOsm/kg (285-295); Potassium 3.6 mmol/L (3.5-5.1); Sodium 140 mmol/L (136-145); Thyroid Stimulating Hormone 1.05 uIU/mL (0.27-4.20); Total Bilirubin 0.2 mg/dL (0.15-1.2); Total Protein 7.3 g/dL (6.6-8.7); Triglycerides 177 mg/dL (0-150)
[2025-02-17 13:29] LABS: Creatinine Urine, Random 75 mg/dL (28-217); Microalbum Creatinine Ratio Ur 13 mg/dL (0-20); Microalbumin Random Urine 1 ug/dL (0-20)
[2025-02-17 13:34] LABS: Estmated Average Glucose 105; Hemoglobin A1C 5.3 % (4.0-6.0)
[2025-02-17 14:11] LABS: Free T4 Free Thyroxine 1.22 ng/dL (0.82-1.77)
[2025-02-18 10:34] LABS: T3 Total 90 ng/dL (76-181)
== END 2025-02-17 12:12 | disposition home or self-care (01) ==
PROVIDERS: PCP Nurse Practitioner Family; Visit Provider Internal Medicine
DX: E05.90 Thyrotoxicosis, unspecified without thyrotoxic crisis or storm (principal); I10 Essential (primary) hypertension; E11.9 Type 2 diabetes mellitus without complications
CPT/HCPCS: 36415; 80053; 80061; 82044; 83036; 84439; 84443; 84480

== ENCOUNTER → 2025-03-16 11:13 | Outpatient (BNVA) | payer OTHER, SELFPAY | PROVIDERS: PCP Nurse Practitioner Family; Visit Provider Nurse Practitioner Women's Health | DX: R35.0 Frequency of micturition (principal); N81.10 Cystocele, unspecified; N81.6 Rectocele | CPT/HCPCS: 87086 ==

== ENCOUNTER 2025-08-30 15:47 | Outpatient (CLI) | payer OTHER, SELFPAY ==
[2025-08-30 16:28] LABS: Estmated Average Glucose 123; Hemoglobin A1C 5.9 % (4.0-6.0)
[2025-08-30 16:47] LABS: Alanine Aminotransferase 16 U/L (0-33); Albumin Level 4.7 g/dL (3.5-5.2); Alkaline Phosphatase 44 U/L (35-105); Anion Gap 12.4 (5-19); Aspartate Amino Transferase 30 U/L (0-32); Blood Urea Nitrogen 16 mg/dL (6-20); Calcium 9.3 mg/dL (8.5-10.5); Carbon Dioxide 30 mmol/L (22-29); Chloride 98 mmol/L (98-107); Cholesterol 193 mg/dL (0-200); Free T4 Free Thyroxine 1.29 ng/dL (0.82-1.77); Globulin 2.7 g/dL (1.3-4.6); Glucose 100 mg/dL (65-115); HDL Cholesterol 55 mg/dL (60-100); Osmolality Calculated 285 mOsm/kg (285-295); Potassium 3.4 mmol/L (3.5-5.1); Sodium 137 mmol/L (136-145); Thyroid Stimulating Hormone 1.63 uIU/mL (0.27-4.20); Total Protein 7.4 g/dL (6.6-8.7); Triglycerides 134 mg/dL (0-150)
[2025-08-30 17:21] LABS: Creatinine Urine, Random 47 mg/dL (28-217); Microalbum Creatinine Ratio Ur 21 mg/dL (0-20)
== END 2025-08-30 15:48 | disposition home or self-care (01) ==
PROVIDERS: PCP Nurse Practitioner Family; Visit Provider Internal Medicine
DX: E11.9 Type 2 diabetes mellitus without complications (principal); E05.90 Thyrotoxicosis, unspecified without thyrotoxic crisis or storm
CPT/HCPCS: 36415; 80053; 80061; 82044; 83036; 84439; 84443; 84480

== ENCOUNTER → 2025-09-04 13:40 | Outpatient (BNVA) | payer OTHER, SELFPAY | PROVIDERS: PCP Nurse Practitioner Family; Visit Provider Nurse Practitioner Family | DX: R30.0 Dysuria (principal) | CPT/HCPCS: 81000 ==